=== PATIENT | male | born 1965 | race Caucasian/White ===

== ENCOUNTER 2017-02-14 09:45 | Emergency (ER) | payer MEDICARE, OTHER ==
[~2017-02-14] VITALS: Ht 180.3 cm; Wt 117.7 kg
[~2017-02-14 09:45] MED LIST: ALLOPURINOL; CLIN300C86 PO; HYDR500C PO; PREG50CA PO; SPRYCEL
--- OUTSIDE RECORDS SUMMARY | 2017-02-14 09:49 | XMS REPORT | Continuity of Care Document ---
Author Author [facility] Address Unknown Phone Unavailable Allergies Active Description Code Type Severity Reaction Onset Reported/Identified Relationship to Patient Clinical Status Yes No Known Drug Allergies [id number] Drug Allergy Unknown N/ A 07/05/2013 Yes No Known Allergies NKMA N/A N/A 04/26/2015 Medications Problems Date Dx Coded Attending Type Code Diagnosis Diagnosed By 07/05/2013 RENÉE RESENDIZ DO Ot 989.5 TOXIC EFFECT VENOM 07/05/2013 RENÉE RESENDIZ DO Ot E849.[address] NEC 07/05/2013 RENÉE RESENDIZ DO Ot E905.9 VENOMOUS BITE/STING NOS 02/14/2015 Ot 274.9 04/26/2015 Jamison Moreno MD Admitting 288.60 05/12/2015 Jamison Moreno MD Final 205.10 Chronic myeloid leukemia without mention of having achieved remission 05/12/2015 Jamison Moreno MD Final 274.9 GOUT, UNSPECIFIED 05/12/2015 Jamison Moreno MD Final 276.1 HYPOSMOLALITY AND/OR HYPONATREMIA 05/12/2015 Jamison Moreno MD Final 276.8 HYPOPOTASSEMIA 05/12/2015 Jamison Moreno MD Final 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 05/12/2015 Jamison Moreon MD Final 338.29 Other chronic pain 05/12/2015 Jamison Moreno MD Final 401.9 UNSPECIFIED ESSENTIAL HYPERTENSION 05/12/2015 Jamison Moreno MD Final 486 PNEUMONIA, ORGANISM UNSPECIFIED 05/12/2015 Jamison Moreno MD Final 511.9 UNSPECIFIED PLEURAL EFFUSION 05/12/2015 Jamison Moreno MD Final 518.84 ACUTE AND CHRONIC RESPIRATORY FAILURE 05/12/2015 Jamison Moreno MD Admitting 786.09 OTHER DYSPNEA AND RESPIRATORY ABNORMALITY 05/12/2015 Jamison Moreno MD Final V15.81 PERSONAL HISTORY OF NONCOMPLIANCE WITH MEDICAL TREATMENT, PRESENTING HAZARD 07/22/2015 AMIE PALMA, DANN Arevalo Ot 208.90 08/22/2016 Mattar Jarrett I Ot C92.10 CHRONIC MYELOID LEUK, BCR/ABL-POSITIVE, 08/22/2016 Ot 274.9 GOUT NOS 08/22/2016 AMIE PALMA, DANN Arevalo Ot 208.90 UNSPECIFIED LEUKEMIA, W/O MENTION OF HAV 08/22/2016 Mattar, Jarrett I Ot C92.10 CHRONIC MYELOID LEUK, BCR/ABL-POSITIVE, 08/23/2016 Mattar, Jarrett I Ot C92.10 CHRONIC MYELOID LEUK, BCR/ABL-POSITIVE, 09/14/2016 Mattar, Jarrett I Ot C92.10 CHRONIC MYELOID LEUK, BCR/ABL-POSITIVE, 09/14/2016 Mattar, Jarrett I Ot G89.3 NEOPLASM RELATED PAIN (ACUTE) (CHRONIC) 10/05/2016 Mattar, Jarrett I Ot C92.10 CHRONIC MYELOID LEUK, BCR/ABL-POSITIVE, 10/05/2016 Mattar, Jarrett I Ot G89.3 NEOPLASM RELATED PAIN (ACUTE) (CHRONIC) 11/20/2016 Mattar, Jarrett I Ot C92.10 CHRONIC MYELOID LEUK, BCR/ABL-POSITIVE, 11/20/2016 Mattar, Jarrett I Ot G89.3 NEOPLASM RELATED PAIN (ACUTE) (CHRONIC) 11/28/2016 Mattar, Jarrett I Ot C92.10 CHRONIC MYELOID LEUK, BCR/ABL-POSITIVE, 11/28/2016 Mattar, Jarrett I Ot G89.3 NEOPLASM RELATED PAIN (ACUTE) (CHRONIC) Procedures Code Description Performed By Performed On 41.31 Biopsy of bone marrow 04/26/2015 Results Test Result Range CBC AND MANUAL DIFF - 08/22/16 15:38 Blood automated leukocyte count 15.44 4.0-11.0 Erythrocytes 4.93 4.50-5.50 12.0-16.0;g/dL 15.9 13.5-17.0 Hematocrit 45.10 39.00-50.00 Automated erythrocyte mean corpuscular volume 92 80-100 Mean corpuscular hemoglobin (MCH) determination 32.3 26.0-34.0 Automated erythrocyte mean corpuscular hemoglobin concentration measurement ( mass/volume) 35.3 31.0-37.0 Erythrocyte distribution width 13.2 11.8 -15.6 Automated blood platelet count 185 150- 450 Automated blood platelet mean volume measurement 8.5 6.0-9.5 Total cell count 100 Blood segmented neutrophils percentage 57 51-67 Blood band neutrophil count as percentage of total leukocytes 0 0-6 LYMPHOCYTES % 33 20-46 Automated monocyte percentage 7 3-11 Eosinophil count auto 0 0-4 Basophils 0 0-2 Manual blood metamyelocytes/100 leukocytes 0 0-1 NEUTROPHILS(SEG) 8.8 NEUTROPHILS # BANDS 0.0 Blood lymphocytes manual count (number/volume) 5.1 Automated blood monocyte count 1.1 Blood absolute eosinophil count 0.0 Basophils 0.0 Lymphocytes.variant 3 <1 Erythrocyte morphology assessment NORMAL NORMAL Encounters ACCT No. Visit Date/Time Discharge Status Pt. Type Provider Facility Loc./Unit Complaint [id number] 08/22/2016 15:32:00 2016 00:01:00 [facility] LAB [id number] 04/06/2015 17:10:00 2014 23:59:59 CLS Outpatient AMIE PALMA, DANN Arevalo [facility] LAB DROP OFF [id number] 07/05/2013 16:39:00 2012 21:35:00 DIS Emergency RENÉE RESENDIZ DO [facility] ED [id number] 11/21/2016 00:03:[address] [facility] [id number] 12/20/2014 10:21:00 Document Registration
--- OUTSIDE RECORDS SUMMARY | 2017-02-14 09:50 | XMS REPORT | Referral Summary ---
Author Author [facility] Organization [facility] Address Unknown Phone Unavailable Care Team Providers Care Feedlot Manager Name Role Phone Dahlia Blair Primary Care Physician [phone] Encounter VC Date(s): 06/21/15 - 06/21/15 [facility] [address] [place] [address] KARAN Scruggs [address] Discharge Disposition: 01-Home or Self Care Attending Physician: Mando Lott MD Admitting Physician: Mando Lott MD Vital Signs No data available for this section Problem List Condition Effective Dates Status Health Status Informant Acute Active pain(Confirmed) Alteration in Active nutrition(Confirmed) 1 At risk for Active infection(Confirmed) 2 CML (chronic Active patient myelocytic leukemia)(Confirmed) Essential Active hypertension (disorder)(Confirmed ) Impaired gas Active exchange(Confirmed)3 Low back pain Active (finding)(Confirmed) Neuropathy(Confirmed Active patient ) Tobacco Active patient user(Confirmed) 1Problem added automatically by system based on initiation of Alteration in Nutrition Plan of Care 2Problem added automatically by system based on initiation of At Risk for Infection in Nutrition Plan of Care 3Problem added automatically by system based on initiation of Impaired Gas Exchange Plan of Care Allergies, Adverse Reactions, Alerts No Known Allergies Medications allopurinol 300 mg oral tablet 300 mg 1 tabs, Oral, Daily, # 30 tabs, 0 Refill(s), Pharmacy: [facility] [id number], 1 tabs Oral Daily Start Date: 05/02/15 Status: Ordered aspirin 650 mg, Oral, BID, Headache, 0 Refill(s) Start Date: 04/26/15 Status: Ordered Hydrea 500 mg oral capsule 1,000 mg 2 caps, Oral, q8hr (scheduled), # 180 caps, 0 Refill(s), Pharmacy: [facility] [id number], 2 caps Oral q8hr (scheduled) Start Date: 05/02/15 Status: Ordered Lyrica 50 mg, Oral, BID, 0 Refill(s) Start Date: 04/26/15 Status: Ordered Non-Formulary Med 0 Refill(s) Start Date: 05/02/15 Status: Ordered oxyCODONE 10 mg, Oral, q12hr, as needed for pain, 0 Refill(s) Start Date: 04/26/15 Status: Ordered OxyCONTIN 20 mg, Oral, q12hr, 0 Refill(s) Start Date: 04/26/15 Status: Ordered Results No data available for this section Immunizations No data available for this section Procedures Procedure Date Related Diagnosis Body Site Debridement, subcutaneous tissue (includes 06/21/15 epidermis and dermis, if performed); first 20 sq cm or less.. Bone marrow biopsy Social History Social History Type Response Smoking Status Current every day smoker; Type: Cigarettes; Tobacco use per day: Pack Assessment and Plan No data available for this section
--- OUTSIDE RECORDS SUMMARY | 2017-02-14 09:50 | XMS REPORT | Referral Summary ---
Author Author [facility] Organization [facility] Address Unknown Phone Unavailable Care Team Providers Care Talk Show Host Name Role Phone Dahlia Blair Primary Care Physician [phone] Encounter VC Date(s): 04/26/15 - 05/02/15 [facility] [address] [place] [address] Discharge Diagnosis: Community acquired pneumonia Final: UNSPECIFIED PLEURAL EFFUSION Final: PNEUMONIA, ORGANISM UNSPECIFIED Final: ACUTE AND CHRONIC RESPIRATORY FAILURE Final: Chronic myeloid leukemia without mention of having achieved remission Final: HYPOSMOLALITY AND/OR HYPONATREMIA Final: UNSPECIFIED ESSENTIAL HYPERTENSION Final: Other chronic pain Final: PERSONAL HISTORY OF NONCOMPLIANCE WITH MEDICAL TREATMENT, PRESENTING HAZARDS TO HEALTH Final: HYPOPOTASSEMIA Final: ANEMIA IN NEOPLASTIC DISEASE Final: GOUT, UNSPECIFIED Discharge Disposition: 01-Home or Self Care Attending Physician: Jamison Moreno MD Admitting Physician: Tino Patel MD Vital Signs Most recent to 1 oldest [Reference Range]: Temperature Oral 36.8 degC [35.8-37.3 degC] (05/02/15 11:00 AM) Peripheral Pulse 87 bpm Rate [60-100 bpm] (05/02/15 11:00 AM) Heart Rate Monitored 96 bpm [60-100 bpm] (05/01/15 11:12 PM) Respiratory Rate 18 br/min [14-20 br/min] (05/02/15 11:00 AM) Blood Pressure 120/74 mmHg [90-140/60-90 mmHg] (05/02/15 11:00 AM) Mean Arterial 79 mmHg Pressure, Cuff (04/26/15 2:05 PM) SpO2 98 % (05/02/15 11:00 AM) Problem List Condition Effective Dates Status Health [...] Daily, # 30 tabs, 0 Refill(s), Pharmacy: [facility] [id number], 1 tabs Oral Daily Start Date: 05/02/15 Status: Ordered aspirin 650 mg, Oral, BID, Headache, 0 Refill(s) Start Date: 04/26/15 Status: Ordered Hydrea 500 mg oral capsule 1,000 mg 2 caps, Oral, q8hr (scheduled), # 180 caps, 0 Refill(s), Pharmacy: [facility] [id number], 2 caps Oral q8hr (scheduled) Start Date: 05/02/15 Status: Ordered Lyrica 50 mg, Oral, BID, 0 Refill(s) Start Date: 04/26/15 Status: Ordered Non-Formulary Med 0 Refill(s) Start Date: 05/02/15 Status: Ordered oxyCODONE 10 mg, Oral, q12hr, as needed for pain, 0 Refill(s) Start Date: 04/26/15 Status: Ordered OxyCONTIN 20 mg, Oral, q12hr, 0 Refill(s) Start Date: 04/26/15 Status: Ordered Results Hematology Most recent to 1 oldest [Reference Range]: WBC [4.8-10.8 248.2 10*3/uL 1 10*3/uL] *HHI* (05/02/15 5:28 AM) RBC [4.60-6.20 2.96 10*6/uL 10*6/uL] *LOW* (05/02/15 5:28 AM) Hgb [14.0-18.0 8.8 gm/dL gm/dL] *LOW* (05/02/15 5:28 AM) Hct [42.0-52.0 %] 26.2 % *LOW* (05/02/15 5:28 AM) MCV [82.0-99.0 fL] 88.5 fL (05/02/15 5:28 AM) MCH [27.0-32.0 pg] 29.7 pg (05/02/15 5:28 AM) MCHC [32.0-36.0 33.6 gm/dL gm/dL] (05/02/15 5:28 AM) RDW [11.5-14.5 %] 21.0 % *HI* (05/02/15 5:28 AM) Platelet [150-400 336 10*3/uL 10*3/uL] (05/02/15 5:28 AM) MPV [9.4-12.3 fL] 11.5 fL (05/02/15 5:28 AM) Neutrophils [51-75 50 % %] *LOW* (05/02/15 5:28 AM) Band Man [0-8 %] 10 % *HI* (05/02/15 5:28 AM) [place] Man [0-1 %] 8 % *HI* (05/02/15 5:28 AM) Myelo Man 4 % (05/02/15 5:28 AM) Promyelo Man [-1-0 1 % %] *HI* (05/02/15 5:28 AM) Lymphocytes [20-46 3 % %] *LOW* (05/02/15 5:28 AM) Monocytes [4-11 %] 2 % *LOW* (05/02/15 5:28 AM) Eosinophils [0-4 %] 18 % *HI* (05/02/15 5:28 AM) Basophils [0-2 %] 2 % (05/02/15 5:28 AM) Blasts Man 2 % (05/02/15 5:28 AM) Neutro Absolute 145.98 10*3 [1.90-7.00 10*3] *HI* (05/02/15 5:28 AM) Lymph Absolute 7.30 10*3 [0.80-3.30 10*3] *HI* (05/02/15 5:28 AM) [place] Absolute 4.87 10*3 [0.30-1.00 10*3] *HI* (05/02/15 5:28 AM) Eos Absolute 43.79 10*3 [0.00-0.50 10*3] *HI* (05/02/15 5:28 AM) Baso Absolute 4.87 10*3 [0.00-0.20 10*3] *HI* (05/02/15 5:28 AM) Nucleated RBC [-1-0 2 /100 WBC 2 /100 WBC] *HI* (05/02/15 5:28 AM) Polychrom Occasional *ABN* (05/02/15 5:28 AM) Microcyte Present *ABN* (05/01/15 7:44 AM) Macrocyte Present *ABN* (05/01/15 7:44 AM) Nucleated RBC 3.4 /100 WBC Automated [0 /100 (05/02/15 5:28 AM) WBC] Differential Manual *ABN* (05/02/15 5:28 AM) 1Result Comment: Critical value called, and read-back verified. Called to Lisa Robins on 7N 05/02/2015 05:50 2Result Comment: @L=100 Chemistry Most recent to 1 oldest [Reference Range]: Sodium Lvl [136-144 134 mEq/L mEq/L] *LOW* (05/02/15 5:27 AM) Potassium Lvl 4.7 mEq/L [3.6-5.1 mEq/L] (05/02/15 5:27 AM) Chloride [99-109 102 mEq/L mEq/L] (05/02/15 5:27 AM) CO2 [22-32 mEq/L] 27 mEq/L (05/02/15 5:27 AM) AGAP [3-20] 5 (05/02/15 5:27 AM) BUN [4-20 mg/dL] 18 mg/dL (05/02/15 5:27 AM) Glucose Lvl [70-100 108 mg/dL mg/dL] *HI* (05/02/15 5:27 AM) Creatinine Lvl 0.94 mg/dL [0.64-1.27 mg/dL] (05/02/15 5:27 AM) eGFR [>60] >60 1 (05/02/15 5:27 AM) Calcium Lvl 8.1 mg/dL [8.6-10.0 mg/dL] *LOW* (05/02/15 5:27 AM) Albumin Lvl [3.5-4.8 2.5 gm/dL gm/dL] *LOW* (05/02/15 5:27 AM) Total Protein 4.8 gm/dL [6.1-7.9 gm/dL] *LOW* (04/27/15 4:23 AM) Globulin [1.9-4.3 2.4 gm/dL gm/dL] (04/27/15 4:23 AM) ALT [17-63 U/L] 13 U/L *LOW* (04/27/15 4:23 AM) AST [15-41 U/L] 24 U/L (04/27/15 4:23 AM) Alk Phos [26-104 83 U/L U/L] (04/27/15 4:23 AM) Bili Total [0.2-1.2 0.8 mg/dL 2 mg/dL] (04/27/15 4:23 AM) Magnesium Lvl 2.1 mg/dL [1.8-2.5 mg/dL] (04/28/15 4:34 AM) Phosphorus [2.4-4.7 4.7 mg/dL 3 mg/dL] (05/02/15 5:27 AM) Procalcitonin 0.86 ng/mL 4 [0.00-0.09 ng/mL] *HI* (04/28/15 4:34 AM) 1Result Comment: Multiply eGFR results by 1.21 for race. 2Result Comment: Naproxen, specifically the metabolite O-desmethylnaproxen, may cause spurious elevation in Total Bilirubin levels. 3Result Comment: High dosages of liposomal Amphotericin B (AmBisome) therapy or other drug preparations that use a liposomal envelope to facilitate drug delivery may cause falsely elevated results for phosphorus. 4Result Comment: Normal: <0.1 ng/mL (infants >72 hrs - adults) Suspected Lower Respiratory Tract Infection 0.10-0.25 ng/mL=Low likelihood for bacterial infection; Antibiotics discouraged. >0.25 ng/mL=Increased likelihood for bacterial infection; Antibiotics encouraged. Suspected Sepsis: Strongly consider initiating antibiotics in all unstable patients. 0.10-0.50 ng/mL=Low likelihood for sepsis; Antibiotics discouraged. >0.50 ng/mL=Increased likelihood for sepsis; Antibiotics encouraged. Decisions on antibiotic use should not be based solely on procalcitonin levels. If antibiotics are administered, repeat procalcitonin testing should be obtained every 2-3 days to consider early antibiotic cessation. PCT is a dynamic biomarker and most useful when trends are analyzed over time in accompaniment with other clinical data. Interpretation should be based upon clinical context and algorithms. Urinalysis Most recent to 1 oldest [Reference Range]: UA Color Yellow (04/26/15 10:05 PM) UA Appear Clear (04/26/15 10:05 PM) UA pH [5.0-8.0] 7.0 (04/26/15 10:05 PM) UA Leuk Est Negative [Negative] (04/26/15 10:05 PM) UA Nitrite Negative [Negative] (04/26/15 10:05 PM) UA Protein Negative [Negative] (04/26/15 10:05 PM) UA Glucose Negative [Negative] (04/26/15 10:05 PM) UA Ketones Negative [Negative] (04/26/15 10:05 PM) UA Urobilinogen Negative [<1.0] (04/26/15 10:05 PM) UA Bili [Negative] Negative (04/26/15 10:05 PM) UA Blood [Negative] Negative (04/26/15 10:05 PM) UA Spec Grav 1.019 [1.003-1.030] (04/26/15 10:05 PM) Type Clean Catch (04/26/15 10:05 PM) Microbiology Reports TEST: Blood Culture STATUS: Auth (Verified) BODY SITE: SOURCE: Blood COLLECTED DATE/TIME: 04/26/15 9:38 PM Blood Culture No growth after 5 days of incubation. TEST: Blood Culture STATUS: Auth (Verified) BODY SITE: SOURCE: Blood COLLECTED DATE/TIME: 04/26/15 9:33 PM Blood Culture No growth after 5 days of incubation. Immunizations No data available for this section Procedures Procedure Date Related Diagnosis Body Site Bone marrow biopsy Social History Social History Type Response Smoking Status Current every day smoker; Type: Cigarettes; Tobacco use per day: Pack Assessment and Plan No data available for this section
--- OUTSIDE RECORDS SUMMARY | 2017-02-14 09:50 | XMS REPORT | Referral Summary ---
Author Author [facility] Organization [facility] Address Unknown Phone Unavailable Care Team Providers Care Hide Paster Name Role Phone Dahlia Blair Primary Care Physician [phone] Encounter VC Date(s): 06/28/15 - 06/28/15 [facility] [address] [place] [address] KARAN Scruggs [address] Discharge Disposition: 01-Home or Self Care [...] Daily, # 30 tabs, 0 Refill(s), Pharmacy: [facility] [id number], 1 tabs Oral Daily Start Date: 05/02/15 Status: Ordered aspirin 650 mg, Oral, BID, Headache, 0 Refill(s) Start Date: 04/26/15 Status: Ordered Hydrea 500 mg oral capsule 1,000 mg 2 caps, Oral, q8hr (scheduled), # 180 caps, 0 Refill(s), Pharmacy: [facility] [id number], 2 caps Oral q8hr (scheduled) Start Date: [...]
--- OUTSIDE RECORDS SUMMARY | 2017-02-14 09:50 | XMS REPORT | Continuity of Care Document ---
Author Author [facility] Organization [facility] Address Unknown Phone Unavailable Support Name Relationship Address Phone JACQUELINE CRUZ Next Of Kin [address] [place] [id number] Insurance Providers Payer Name Policy Number Subscriber Name Relationship [facility] [employer] [facility] [id number] Mack Cruz Jr 20 Self / Same As Patient Medicare A And B [id number] Mack Cruz Jr 20 Self / Same As Patient Advance Directives Directive Response Recorded Date Advanced Directives No 07/05/13 4:35pm Problems Medical Problem Onset Date Cellulitis 07/05/13 Pain in calf 07/05/13 Allergies, Adverse Reactions, Alerts Allergen Type Severity Reaction Last Updated No Known Drug Allergies 07/05/13 Medications Medication Dose Units Route Sig Qty Days Cephalexin (Keflex) 1000 Mg PO BID 40 [anti-depressant] [cholesterol med] Ibuprofen (Motrin Ib) Hydrocodone Bit/Acetaminophen (Lortab 5 Mg) Lisinopril (Zestril) Immunizations Name Given Type Tdap 07/05/13 A Response Recorded Date/Time Status not known Unknown Results No Known Relevant Diagnostic Tests, Laboratory Data and/or Discharge Summary. Encounters [facility]counter [facility] 4[facility]
[2017-02-14 09:54] VITALS: Ht 180.3 cm; Wt 117.7 kg
[2017-02-14] MEDS ORDERED: GABA-338 PO (10:12)
[2017-02-14] MEDS ORDERED: IBUP-1724 PO (10:14)
[2017-02-14] MEDS ORDERED: DASA140T PO (10:14)
[2017-02-14] MEDS ORDERED: BENZ9GEL3 PO (10:14)
--- NOTE | 2017-02-14 10:19 | NUR ---
DR GARBER IN
--- NOTE | 2017-02-14 10:25 | ERPDOC ---
Departure Disposition Decision Date: February 14, 2017 Disposition Decision Time: 10:31 Disposition: 01 DISCHARGED HOME, SELF-CARE Impression Impression Impression: Primary Impression: Infected tooth Additional Impression: Leukemia Severity: Moderate Condition: Stable Seen By: Physician only Referrals: KAMAR STARKS MD (Family) Patient Instructions: Dental Abscess (ED) Problems/Meds/Labs Reviewed?: Yes Medications reviewed and manag: Yes Additional Instructions: Keflex 500 mg, 2 tablets twice daily for 10 days. Percocet 5 mg, 1 tab twice daily as needed. You need to see a dentist tomorrow. You will also need to follow-up with your cancer doctor. Certainly without treatment you will much sooner. Follow up care ordered?: Yes Mental Status: Alert, Oriented Scripts Cephalexin (Keflex) 500 Mg Capsule 2 CAP PO BID, #40 CAP Prov: DANISH GARBER MD 02/14/17 HPI General Chief Complaint: Toothache Stated Complaint: INFECTION IN MOUTH LOWER JAW Time Seen by Provider: 10:24 HPI Dental Initial Comments 51-year-old gentleman with severe pain in mouth and gums due to infected teeth. He mutters, will not answer questions directly, does not cooperate on the exam. He has not seen his cancer doctor in several months and is not sure when he is supposed to follow-up. He is frustrated that Medicare will not pay get his teeth fixed, or to fix his eyes. He need something for pain due to the multiple teeth Allergies: Coded Allergies: No Known Allergies (Unverified , 02/14/17) Past History Past Medical History Metabolic: cancer Vaccines Hx Influenza Vaccination: No Hx Tetanus, Diptheria, Pertuss: Yes (UNKNOWN) Review of Systems ENMT Teeth: see HPI Musculoskeletal General: see HPI All other Systems All Other Systems: Reviewed and Negative Exam General General Nourishment: no acute distress, adult, obese Vital Signs: Temperature: 98.4, Source: Oral, Heart Rate: 76, Respiratory Rate : 18, BP: 169/96, Pulse Oximetry: 99 Height (Feet): 5 Height (Inches): 11.00 [facility]rak Dental Face: tender, NOT FOUND: bruising, erythema, numbness, swelling ENMT (brief) Comments Patient has very poor dentition with multiple rotting teeth upper and lower gums. I can't find a specific spot that is draining, however gums are red and inflamed across the bottom anterior portion. No cervical nodes are palpable in the neck. Neurologic RN Documented GCS Eye Opening: Verbal: Motor: Total: Differential Diagnoses Considering: Gingival Abscess, Caries, Dry Socket, Gingivitis, Impacted Tooth Progress Progress Progress Patient shows no markers for sepsis. He actually does seem to be intoxicated. His is with him and will get him home safely. I did write him a prescription for Keflex 500 mg, 2 tabs twice daily to cover teeth. Strongly recommend he see a dentist for tooth care and likely pulling of several teeth. I did give him a prescription for Percocet 5 mg #5 tablets. And he was given 1 Percocet 5 mg tablet and Toradol 60 mg orally while he was here. Because of the history of leukemia, I wanted to make sure he was treated. He is reminded to follow up with his oncology doctor as well as the dentist, I explained that without following up with him he will certainly developed a bad infection and will hasten his . DANISH GARBER MD February 14, 2017 10:25
--- OUTSIDE RECORDS SUMMARY | 2017-02-14 10:32 | XMS REPORT | Continuity of Care Document ---
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 Type Provider Facility Loc./Unit Complaint [id number] 08/22/2016 15:32:00 2016 00:01:00 [facility] LAB [id number] 04/06/2015 17:10:00 2014 23:59:59 CLS Outpatient AMIE PALMA, DANN Arevalo [facility] LAB DROP OFF [id number] 07/05/2013 16:39:00 2012 21:35:00 DIS Emergency RENÉE RESENDIZ DO [facility] ED [id number] 11/21/2016 00:03:00 [facility] [id number] 12/20/2014 10:21:00 Document Registration
[2017-02-14] MEDS ORDERED: CEPH-583 PO (10:34)
[2017-02-14] MEDS ORDERED: OXYC1TAB8 PO (10:38)
[2017-02-14] MEDS ORDERED: OXYCODONE/APAP 5mg/325mg TABLET PO ONE (10:45)
[2017-02-14] MEDS ORDERED: KETOROLAC 60mg/2ml INJECTION IM ONE (10:45)
[2017-02-14] MEDS ORDERED: OXYC-541 PO (11:29)
[2017-02-14 11:35] VITALS: BP 164/87; PULSE 75; RESP 16; TEMP 99.1; O2SAT 96
--- NOTE | 2017-02-14 11:35 | NUR ---
DISMISSAL INSTRUCTIONS & RX REVIEWED WITH PT. HE VERBALIZES UNDERSTANDING. DISCHARGED PER WC ACCOMPANIED BY RN TO CAR. PAIN IMPROVED 06/09. ENCOURAGED PT TO TAKE FLUIDS & USE LAXATIVE PRN & FOLLOWUP WITH DENTIST KARENA
== END 2017-02-14 11:35 | disposition home or self-care (01) ==
LOC: ED 09:45
DX: K04.7 Periapical abscess without sinus (principal); C95.90 Leukemia, unspecified not having achieved remission
CPT/HCPCS: 96372; 99283; A9270; J1885